=== PATIENT | female | born 1935 | race Asian ===

== ENCOUNTER 2017-12-01 06:14 | Day surgery (SDC) | payer OTHER ==
[2017-11-30 15:42] VITALS: BMI 20.7
[~2017-12-01 06:14] MED LIST: ACETAMINOPHEN 325 MG TABLET (FP) PO PRN; BSS (NA/CA/MG/K) BALANCED SALT SOLUTION OPHTH SOLN 15 ML BOTTLE OS ONE; CHONDROITIN SU A/HYALUR SOD 1 KIT IO ONE; EPINEPHrine/PF 1 MG/1 ML (1:1,000) AMPULE IO ONE; LIDOCAINE HCL 1% PRESERVATIVE FREE - 30ML VIAL IO ONE; POVIDONE-IODINE 5% OPHTHALMIC PREP 30 ML SOLUTION OS ONE; TETRACAINE 0.5% OPHTH SOLN 2 ML BOTTLE OS ONE
[2017-12-01] MEDS ORDERED: CIPROFLOXACIN 0.3% EYE DROPS 5 ML BOTTLE ONE (06:24)
[2017-12-01] MEDS ORDERED: CYCLOPENTOLATE HCL 1% OPHTH SOLN 2 ML BOTTLE ONE (06:24)
[2017-12-01] MEDS ORDERED: FLURBIPROFEN 0.03% OPHTH SOLN 2.5 ML BOTTLE ONE (06:24)
[2017-12-01] MEDS ORDERED: PHENYLEPHRINE 2.5% OPHTH SOLN 15 ML BOTTLE ONE (06:24)
[2017-12-01] MEDS ORDERED: TROPICAMIDE 0.5% OPHTHALMIC SOLN 15 ML BOTTLE ONE (06:24)
[2017-12-01] MEDS: CIPROFLOXACIN HCL 0.3% OPHTH 2.5ML BOTTLE OP SCH ×3 (06:40→07:00)
[2017-12-01] MEDS: FLURBIPROFEN 0.03% OPHTH SOLN 2.5 ML BOTTLE OP SCH ×3 (06:40→07:00)
[2017-12-01] MEDS: PHENYLEPHRINE 2.5% OPHTH SOLN 15 ML BOTTLE OP SCH ×3 (06:40→07:00)
[2017-12-01] MEDS: CYCLOPENTOLATE HCL 1% OPHTH SOLN 2 ML BOTTLE OP SCH ×3 (06:40→07:00)
[2017-12-01] MEDS: TROPICAMIDE 1% OPHTH SOLN 15 ML BOTTLE OP SCH ×2 (06:50→07:00)
[2017-12-01 06:57] VITALS: TEMP 97.7
[2017-12-01] MEDS ORDERED: DESFLURANE GAS 240 ML BOTTLE IH ONE (07:02)
[2017-12-01] MEDS ORDERED: MIDAZOLAM HCL 2 MG/2 ML SINGLE DOSE VIAL ONE (07:07)
[2017-12-01] MEDS ORDERED: PROPOFOL 20 ML ONE ×2 (07:07)
[2017-12-01] MEDS ORDERED: EPINEPHrine/PF 1 MG/1 ML (1:1,000) AMPULE ONE (07:14)
[2017-12-01] MEDS ORDERED: POVIDONE-IODINE 5% OPHTHALMIC PREP 30 ML SOLUTION ONE (07:15)
[2017-12-01] MEDS ORDERED: WATER FOR INJ,STERILE 10 ML ONE (07:15)
[2017-12-01] MEDS ORDERED: VANCOMYCIN 500 MG VIAL (RESTRICTED TO ID ONLY) ONE (07:15)
[2017-12-01] MEDS ORDERED: LACTATED RINGERS SOLUTION 1,000 ML IV SCH (07:30)
[2017-12-01] MEDS ORDERED: TETRACAINE 0.5% OPHTH SOLN 2 ML BOTTLE OS ONE (08:05)
[2017-12-01] MEDS ORDERED: POVIDONE-IODINE 5% OPHTHALMIC PREP 30 ML SOLUTION OS ONE (08:08)
[2017-12-01] MEDS ORDERED: LIDOCAINE HCL 1% PRESERVATIVE FREE - 30ML VIAL IO ONE (08:15)
[2017-12-01] MEDS ORDERED: CHONDROITIN SU A/HYALUR SOD 1 KIT IO ONE (08:15)
[2017-12-01] MEDS ORDERED: BSS (NA/CA/MG/K) BALANCED SALT SOLUTION OPHTH SOLN 15 ML BOTTLE OS ONE (08:15)
[2017-12-01] MEDS ORDERED: TRYPAN BLUE 0.5 ML DISP.SYRIN IO ONE (08:15)
[2017-12-01] MEDS ORDERED: EPINEPHrine/PF 1 MG/1 ML (1:1,000) AMPULE IO ONE (08:21)
[2017-12-01 10:27] VITALS: BP 142/55; PULSE 58
--- NOTE | 2017-12-01 14:10 | SPEC ---
DATE OF OPERATION: 12/01/2017 PREOPERATIVE DIAGNOSIS: Cataract left eye. POSTOPERATIVE DIAGNOSIS: Cataract left eye. OPERATION: Phacoemulsification of left cataract with capsular staining Trypan blue and posterior chamber intraocular lens implantation, lens used [id number], 22.5 diopter power, serial No. [id number]. SURGEON: Nestor Martinez M.D. ANESTHESIA: Topical MAC. COMPLICATIONS: None. PROCEDURE: The patient was brought to the operating room and correctly identified along with the operative site as well as correct intraocular lens vo. The patient was then prepped and draped in the usual sterile fashion including 5% Betadine solution in the conjunctival sac and an eyelid drape. An eyelid speculum was then placed into the operative eye. The eye was inspected and a poor red reflex was noted. A paracentesis port was created and .5 mL of intracameral preservative-free Lidocaine 1% was given. Beneath an air bubble, the capsule was then stained with Trypan blue. The Trypan blue was then irrigated from the eye with balanced salt solution (BBS). Viscoelastic was injected to inflate the anterior chamber. A temporal clear corneal would was created. A continuous circular capsulorrhexis was performed. The nucleus was then hydro-dissected and hydro-delineated was BSS and removed with phacoemulsification via [id number] approach. The remaining cortical material was irrigated and aspirated from the eye. Viscoelastic was injected in the anterior chamber to inflate the capsular bag. The intraocular lens was then injected into the bag. The Viscoelastic was irrigated and aspirated from the eye. All wounds were tested and found to be watertight. No suture was placed. The intraocular lens was noted to be well centered and covered by the anterior capsular border. Topical Vancomycin was given. The eye was patched and shielded. The patient was discharged from the operating room in stable condition. Kadeem [id number]
== END 2017-12-01 10:35 | disposition home or self-care (01) ==
LOC: JASU-SURG 06:14
PROVIDERS: ATTEND Ophthalmology
PROC: 08RK3JZ Replacement of Left Lens with Synthetic Substitute, Percutaneous Approach (ICD-10-PCS; principal; 2017-12-01 08:00)
DX: H26.9 Unspecified cataract (principal); H57.8 Other specified disorders of eye and adnexa
CPT/HCPCS: 82962

== ENCOUNTER 2017-12-15 06:05 | Day surgery (SDC) | payer OTHER ==
[2017-12-13 14:09] VITALS: BMI 20.7
[~2017-12-15 06:05] MED LIST changes: -BSS (NA/CA/MG/K) BALANCED SALT SOLUTION OPHTH SOLN 15 ML BOTTLE OS ONE; -CHONDROITIN SU A/HYALUR SOD 1 KIT IO ONE; -EPINEPHrine/PF 1 MG/1 ML (1:1,000) AMPULE IO ONE; -LIDOCAINE HCL 1% PRESERVATIVE FREE - 30ML VIAL IO ONE; -POVIDONE-IODINE 5% OPHTHALMIC PREP 30 ML SOLUTION OS ONE; -TETRACAINE 0.5% OPHTH SOLN 2 ML BOTTLE OS ONE
[2017-12-15] MEDS ORDERED: FLURBIPROFEN 0.03% OPHTH SOLN 2.5 ML BOTTLE ONE (06:13)
[2017-12-15] MEDS ORDERED: TROPICAMIDE 0.5% OPHTHALMIC SOLN 15 ML BOTTLE ONE (06:13)
[2017-12-15] MEDS ORDERED: CYCLOPENTOLATE HCL 1% OPHTH SOLN 2 ML BOTTLE ONE (06:14)
[2017-12-15] MEDS ORDERED: CIPROFLOXACIN 0.3% EYE DROPS 5 ML BOTTLE ONE (06:14)
[2017-12-15] MEDS ORDERED: PHENYLEPHRINE 2.5% OPHTH SOLN 15 ML BOTTLE ONE (06:14)
[2017-12-15] MEDS: CIPROFLOXACIN HCL 0.3% OPHTH 2.5ML BOTTLE OP SCH ×3 (07:15→07:25)
[2017-12-15] MEDS: CYCLOPENTOLATE HCL 1% OPHTH SOLN 2 ML BOTTLE OP SCH ×3 (07:15→07:25)
[2017-12-15] MEDS: TROPICAMIDE 1% OPHTH SOLN 15 ML BOTTLE OP SCH ×3 (07:15→07:25)
[2017-12-15] MEDS: FLURBIPROFEN 0.03% OPHTH SOLN 2.5 ML BOTTLE OP SCH ×3 (07:15→07:25)
[2017-12-15] MEDS: PHENYLEPHRINE 2.5% OPHTH SOLN 15 ML BOTTLE OP SCH ×3 (07:15→07:25)
[2017-12-15] MEDS ORDERED: EPINEPHrine/PF 1 MG/1 ML (1:1,000) AMPULE ONE (07:25)
[2017-12-15] MEDS ORDERED: VANCOMYCIN 500 MG VIAL (RESTRICTED TO ID ONLY) ONE (07:25)
[2017-12-15] MEDS ORDERED: LIDOCAINE HCL/PF 1% SDV 5ML VIAL ONE (07:26)
[2017-12-15] MEDS ORDERED: WATER FOR INJ,STERILE 10 ML ONE (07:26)
[2017-12-15] MEDS ORDERED: POVIDONE-IODINE 5% OPHTHALMIC PREP 30 ML SOLUTION ONE (07:26)
[2017-12-15 07:30] VITALS: TEMP 98.9
[2017-12-15] MEDS ORDERED: MIDAZOLAM HCL 2 MG/2 ML SINGLE DOSE VIAL ONE (07:51)
--- NOTE | 2017-12-15 07:57 | HP ---
History & Physical Update - History History: No Change - Physical Physical: No Change - Assessment Assessment: No Change - Plan Plan: No Change (11/24/17)
[2017-12-15] MEDS ORDERED: TETRACAINE 0.5% OPHTH SOLN 2 ML BOTTLE OD ONE (07:58)
[2017-12-15] MEDS ORDERED: POVIDONE-IODINE 5% OPHTHALMIC PREP 30 ML SOLUTION OD ONE (08:01)
[2017-12-15] MEDS ORDERED: LIDOCAINE HCL 1% PRESERVATIVE FREE - 30ML VIAL IO ONE (08:12)
[2017-12-15] MEDS ORDERED: TRYPAN BLUE 0.5 ML DISP.SYRIN IO ONE (08:12)
[2017-12-15] MEDS ORDERED: CHONDROITIN SU A/HYALUR SOD 1 KIT IO ONE (08:12)
[2017-12-15] MEDS ORDERED: BSS (NA/CA/MG/K) BALANCED SALT SOLUTION OPHTH SOLN 15 ML BOTTLE OD ONE (08:12)
[2017-12-15] MEDS ORDERED: EPINEPHrine/PF 1 MG/1 ML (1:1,000) AMPULE IO ONE (08:20)
--- NOTE | 2017-12-15 09:30 | SPEC ---
DATE OF OPERATION: DATE OF DICTATION: 12/15/2017 PREOPERATIVE DIAGNOSIS: Cataract, right eye. POSTOPERATIVE DIAGNOSIS: Cataract, right eye. PROCEDURE: Phacoemulsification of right cataract with posterior chamber intraocular lens implantation, capsular staining with Trypan blue, lens used SN60WF, 23.0- diopter power, serial number [id number]. SURGEON: Diego Rebolledo MD ANESTHESIA: Topical MAC. COMPLICATIONS: None. PROCEDURE: The patient was brought to the operating room and correctly identified along with the operative site as well as correct intraocular lens vo. The patient was then prepped and draped in the usual sterile fashion, including 5% Betadine solution in the conjunctival sac and an eyelid drape. An eyelid speculum was then placed into the operative eye. The eye was inspected and a 5.5 mm pupil was noted. A paracentesis port was created and 0.5 mL of intracameral preservative-free lidocaine 1% was given. Beneath an air bubble, the capsule was then stained with Trypan blue to assist with visualization during the capsulorhexis. The Trypan blue was then irrigated from the eye with balanced salt solution (BBS). Viscoelastic was injected to inflate the anterior chamber. A temporal clear corneal would was created. A continuous circular capsulorrhexis was performed. The nucleus was then hydrodissected and hydrodelineated was BSS and removed with phacoemulsification via divide-and- conquer approach. The remaining cortical material was irrigated and aspirated from the eye. Viscoelastic was injected in the anterior chamber to inflate the capsular bag. The intraocular lens was then injected into the bag. The Viscoelastic was irrigated and aspirated from the eye. All wounds were tested and found to be watertight. No suture was placed. The intraocular lens was noted to be well centered and covered by the anterior capsular border. Topical vancomycin was given. The eye was patched and shielded. The patient was discharged from the operating room in stable condition. DIEGO REBOLLEDO M.D. [id number] MTDD
[2017-12-15 09:34] VITALS: BP 150/63; PULSE 59
== END 2017-12-15 09:34 | disposition home or self-care (01) ==
LOC: JASU-SURG 06:05
PROVIDERS: ATTEND Ophthalmology
PROC: 08RJ3JZ Replacement of Right Lens with Synthetic Substitute, Percutaneous Approach (ICD-10-PCS; principal; 2017-12-15 08:00)
DX: H26.9 Unspecified cataract (principal)
CPT/HCPCS: 82962